=== PATIENT | male | born 1955 | race Caucasian/White ===

== ENCOUNTER 2017-08-16 18:33 | Inpatient (IN) ==
--- NOTE | 2017-08-16 18:45 | Emergency Department Note ---
Disposition Clinical Impression: Acute exacerbation of chronic obstructive airways disease Disposition: Admitted As Inpatient Condition: Good Forms: ED Satisfaction Letter Time of Disposition: 20:47 SOB HPI - General Chief Complaint: ED Shortness of Breath/Dyspnea Stated Complaint: SOB/WEAKNESS Time Seen by Provider: 08/16/17 18:37 Source: patient, EMS Mode of arrival: EMS Limitations: no limitations Nursing Notes Reviewed: Yes Vital Signs Reviewed: Yes - History of Present Illness 62-year-old male comes here from the [place] who states that he has had increasing shortness of breath and felt like is going pass out earlier. Workup was done at the [place] which shows a white count of 8.8, hemoglobin 12.6, hematocrit 39.9, platelets of 206,000, UA is negative, sodium 139, potassium 4.7, chloride of 97 , CO2 of 38, glucose 124, BUS 16, creatinine 1.02, GFR greater than 60, ABG shows a pH of 7.42 PCO2 of 63.8, PaO2 of 68. C-reactive protein 0.4, calcium 9.3, troponin is less than 0.015. 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 Constitutional: Denies: fever, chills, weakness, weight change Eyes: Denies: eye pain, eye discharge, vision change ENT ED: Denies: ear pain, throat pain, dental pain, hearing loss, epistaxis, congestion, dysphagia Cardiovascular: Denies: chest pain, palpitations, dyspnea on exertion, edema, syncope Respiratory: Reports: dyspnea, wheezes. Denies: cough, hemoptysis, stridor Gastrointestinal: Denies: abdominal pain, nausea, vomiting, diarrhea, constipation, hematemesis, melena, hematochezia Genitourinary: Denies: urgency, dysuria, frequency, hematuria Musculoskeletal: Denies: back pain, neck pain, arthralgia, myalgia Integumentary: Denies: rash, abrasion, lesions Neurological: Denies: headache, weakness, numbness, paresthesias, confusion, abnormal gait, vertigo Psychiatric: Denies: anxiety, depression, suicidal thoughts, homicidal thoughts , auditory hallucinations, visual hallucinations Endocrine: Denies: fatigue Hematological/Lymphatic: Denies: easy bleeding, easy bruising Allergic/Immunologic: Denies: facial swelling, urticaria Physical Exam - General Limitations: no limitations General appearance: alert, in no apparent distress - Head Head exam: atraumatic, normocephalic, normal inspection - Eye Eye exam: Present: normal appearance, PERRL, EOMI - ENT ENT exam: normal exam, normal oropharynx, mucous membranes moist - Neck Neck exam: Present: normal inspection, full ROM, trachea midline - Chest Chest inspection: Present: normal inspection, symmetric chest wall rise - Respiratory Respiratory exam: Present: wheezes, accessory muscle use, prolonged expiratory phase - Cardiovascular Cardiovascular exam: Present: regular rate, normal rhythm, normal heart sounds - Abdominal Exam Abdominal exam: Present: soft, Non-Tender. Absent: tenderness, distention, guarding, rebound, rigidity - Extremities Exam Extremities exam: Present: normal inspection, full ROM. Absent: tenderness, pedal edema - Expanded Lower Extremity Exam Neurovascular/Tendon exam: Absent: motor deficit, sensory deficit, tendon deficit Gait: observed and normal - Back Exam Back exam: Present: normal inspection, full ROM. Absent: tenderness - Neurological Exam Neurological exam: Present: alert, oriented X3 - Psychiatric Psychiatric exam: Present: normal affect, normal mood - Skin Skin exam: Present: warm, dry, intact, normal color Course - Reevaluation(s) Reevaluation #1: 62-year-old COPD comes in with increasing shortness of breath from [place]. Patient also had near syncope. Time: 20:48 - Consultations Consultation #1: Discussed with , admit Time: 20:47 Vital Signs Temperature 98.1 F 08/16/17 18:35 Pulse Rate 79 08/16/17 18:35 Respiratory Rate 22 08/16/17 18:35 Blood Pressure 98/81 08/16/17 18:35 O2 Sat by Pulse Oximetry 97 08/16/17 18:35 Temperature 98.1 F 08/16/17 18:35 Pulse Rate 66 08/16/17 20:31 Respiratory Rate 18 08/16/17 20:31 Blood Pressure 114/65 08/16/17 20:31 O2 Sat by Pulse Oximetry 95 08/16/17 20:31 Oxygen Delivery Oxygen Delivery Nasal Cannula Shortness of Breath/Dyspnea - Lab Data Lab results reviewed: Yes I reviewed the patient's lab results. Lab Results 08/16/17 Range/Units 19:30 B-Natriuretic Peptide 14 (Less than 100) pg/mL - Radiology Data Radiology results reviewed: Yes I reviewed the patient's radiology results. Chest X-Ray 08/16/17 18:48 IMPRESSION: No acute process. Findings suggestive of COPD. D/ / Mansoor Marin MD / Mansoor Marin MD Interpreting Provider: Mansoor Marin MD Head CT 08/16/17 18:48 IMPRESSION: No acute intracranial abnormality. Remote fracture the right lamina papyracea. D/ / Shon Reveles MD / Shon Reveles MD Interpreting Provider: Shon Reveles MD - EKG Data EKG attestation: Yes I reviewed and interpreted this EKG. EKG shows normal: Reports: sinus rhythm Rate: Reports: normal Rhythm: Reports: NSR [place]/QRS: Reports: normal Interpretation: Reports: no acute changes
[2017-08-16] MEDS ORDERED: Ipratropium/Albuterol Neb 3 ML IH ONE (19:52)
[2017-08-16] MEDS ORDERED: methylPREDNISolone 125 MG/2 ML VIAL IVP ONE (19:53)
[2017-08-17] MEDS ORDERED: 0.9 % Sodium Chloride 500 ML IVC ONE (01:03)
[2017-08-17] MEDS ORDERED: 0.9 % Sodium Chloride 1,000 ML ONE (01:07)
[2017-08-17] MEDS ORDERED: Naloxone 0.4 MG/ML INJ IVP PRN (01:25)
[2017-08-17] MEDS ORDERED: traMADol 50 MG TABLET PO PRN (01:25)
[2017-08-17] MEDS ORDERED: Acetaminophen 325 MG TABLET PO PRN (01:25)
--- NOTE | 2017-08-17 01:42 | Internal Med History&Physical ---
Date of Encounter: 08/17/17 Time of Encounter: :38 Assessment and Plan (1) Acute exacerbation of chronic obstructive airways disease Current visit: Yes Status: Acute 62/male [place] patient. Was transferred from [place] to this hospital for COPD exacerbation with possible syncope. Patient was evaluated in the emergency department at [facility]. Patient was hypotensive in the hospital. Fluid was given and patient was sent in this direction. Patient is a polyphonic wheezes. Assessment: Acute exacerbation of COPD Possible syncopal/presyncopal episode. Plan: Admit to inpatient. We will treat as a COPD exacerbation. IV antibiotics: Intravenous ceftriaxone/intravenous azithromycin. IV steroids: Intravenous Solu-Medrol 40 mg every 8 hours. Inhaled bronchodilators: Duoneb every 4 hours. Close monitoring of the respiratory status. I examined this patient in 2A 38 Patient's RN was with me during examination. plan of care explained. (2) Syncope Current visit: Yes Status: Acute Patient had a presyncopal episode during this COPD exacerbation. Patient was lightheaded. We will get ultrasound carotid/echocardiogram. Patient is presently on telemetry. Close monitoring of the neurological status. Qualifiers: Syncope type: unspecified Qualified Code(s): R55 - Syncope and collapse (3) Hypertension Current visit: Yes Status: Acute Patient's blood pressure is within acceptable range. We will continue home medication. Qualifiers: Hypertension type: essential hypertension Qualified Code(s): I10 - Essential (primary) hypertension (4) Hyperlipidemia Current visit: Yes Status: Acute We will resume patient's home medication. We will get lipid panel tomorrow morning. Qualifiers: Hyperlipidemia type: unspecified Qualified Code(s): E78.5 - Hyperlipidemia , unspecified (5) DVT prophylaxis Current visit: Yes Status: Acute SCD Medical decision making: This patient has a moderate to severe risk of worsening in spite of being on appropriate medication to the underlying chronic comorbid conditions. Internal Medicine - H&P: HPI Chief complaint: shortness of breath and dizziness. Admitted From: Emergency Dept Plans for Post Hospital Care: at Medical Facility History of present illness: Mr. Black is a 62 year old male who was transferred here from [facility]. Patient was seen at the [facility]. Patient is known to have her COPD, hypertension, dyslipidemia, GERD. Patient was persistently short of breath for past 3-4 days. It was noted that patient has progressively worsened shortness of breath along with increase sputum production. Patient is not a noted that the color of his sputum has changed from clear to yellowish green. Patient also had an episode of dizziness and room spinning around him. This was the reason patient went to [place] [facility] for further evaluation. Noted that patient' s blood pressure was in 80s at the [place]. They gave him a bolus of normal saline and sent him to [facility] for further evaluation. In emergency room patient was evaluated. His head CT was negative for any acute changes. Patient's chest x-ray did not show any acute process. Patient was hospitalized for further management. Reason for hospitalization: COPD exacerbation with presyncopal episode Past Med Surg Social Fam HX - Past Medical History Medical history: COPD, hyperlipidemia, hypertension Psychiatric history: anxiety, depression, panic disorder, PTSD - Social History Smoking Status: Former smoker Smokeless Tobacco Status: No Alcohol use: occasionally Drug use: none Internal Medicine - H&P: Meds ALPRAZolam [Xanax 0.5 MG Tablet] 0.5 mg PO TID 08/17/17 [History] Atorvastatin Calcium [Lipitor] 20 mg PO 08/17/17 [History] Budesonide/Formoterol 160/4.5 [Symbicort 160/4.5] 2 puff BID 08/17/17 [History] Cholecalciferol (Vitamin D3) [Vitamin D] 1,000 unit PO 08/17/17 [History] Furosemide [Lasix] 40 mg PO DAILY 08/17/17 [History] Furosemide [Lasix] 60 mg PO QAM 08/17/17 [History] Guaifenesin [Mucus Relief] 400 mg PO Q6HR PRN 08/17/17 [History] Lisinopril 30 mg PO DAILY 08/17/17 [History] Loratadine [Allergy Relief] 10 mg PO DAILY 08/17/17 [History] Meloxicam 15 mg PO DAILY PRN 08/17/17 [History] Omeprazole 20 mg PO DAILY 08/17/17 [History] Potassium Chloride [Klor-Con 10] 10 meq PO DAILY 08/17/17 [History] PrednisoLONE [Millipred] 5 mg PO DAILY 08/17/17 [History] Ranitidine HCl [Heartburn Relief] 150 mg PO PRN 08/17/17 [History] Tamsulosin [Flomax] 0.4 mg PO DAILY 08/17/17 [History] Theophylline Anhydrous [Theophylline] 400 mg PO DAILY 08/17/17 [History] Zolpidem [Ambien] 10 mg PO HS 08/17/17 [History] 3 Allergy/AdvReac Type Severity Reaction Status Date / Time SEE LIST Allergy Mild See Uncoded 08/16/17 18:35 Comments All Systems PM: A 10-system review of systems was performed and is negative for pertinent findings except as documented above in the HPI. - Constitutional Constitutional: fatigue, no chills, no fever(s), no night sweats - EENT Eyes: no change in vision, no discharge, no pain, no photophobia Ears: no ear discharge, no ear pain, no tinnitus Nose, mouth and throat: no dysphagia, no nasal discharge, no neck pain, no sore throat - Cardiovascular Cardiovascular ROS IM: dyspnea, lightheadedness, no chest pain, no diaphoresis, no palpitations, no syncope - Respiratory Respiratory: cough, dyspnea, wheezing, excessive phlegm production, change in phlegm color, pain with cough - Gastrointestinal Gastrointestinal: no abdominal pain, no diarrhea, no hematemesis, no hematochezia, no melena, no nausea, no vomiting - Musculoskeletal Musculoskeletal ROS IM: no numbness, no tingling - Integumentary Integumentary IM: no rash, no unusual bruising - Neurological Neurological ROS: no confusion, no convulsions, no focal weakness, no numbness, no tingling, no tremor(s) - Hematologic/Lymphatic Hematologic/Lymphatic: no easy bruising - Constitutional Vitals: Temp Pulse Resp BP Pulse Ox 98.5 F 75 16 93/56 94 08/16/17 22:49 08/16/17 22:49 08/16/17 22:49 08/16/17 22:49 08/16/17 22:49 - Head Head exam: Present: atraumatic, normocephalic - Eye Eye exam: Present: PERRL, conjuntiva pink, sclera anicteric Pupils: Present: PERRL - Neck Neck exam general surgery: Present: supple, trachea midline. Absent: lymphadenopathy - Respiratory Respiratory exam: Present: CTAB. Absent: accessory muscle use, rales, rhonchi, wheezes - Cardiovascular Cardiovascular exam: Present: RRR, +S1, +S2. Absent: diastolic murmur, gallop, rubs, systolic murmur - GI/Abdominal GI/Abdominal exam: Present: normal bowel sounds, soft, no peritoneal signs. Absent: distended, tenderness - Extremities Exam Extremities exam: Present: warm, radial pulses palpable and symmetrical. Absent : calf tenderness, cyanotic, pedal edema - Neurological Exam Neurological exam: Present: CN II-XII intact, oriented X3, no focal deficits. Absent: pronater drift, facial droop, speech deficit - Skin Skin exam: Present: dry, intact
[2017-08-17] MEDS ORDERED: Azithromycin 500 MG in D5% in Water 250 ML IVPB SCH (02:00)
[2017-08-17 02:04] LABS: Basophils % 0.3 %; Eosinophils % 0.1 %; Hematocrit 36.3 % (37.5-50.1); Hemoglobin 11.1 g/dL (12.9-16.9); Immature Granulocytes % 0.3 % (0-4); Lymphocytes % 5.5 %; Mean Corpuscular HGB Conc 30.6 g/dL (31.6-35.5); Mean Corpuscular Hemoglobin 28.5 pg (28.0-33.3); Mean Corpuscular Volume 93.1 fL (83.0-100.0); Mean Platelet Volume 9.5 fL (9.4-12.4); Monocytes % 0.5 %; Platelet Count 157 K/mcL (140-400); Red Cell Distribution Width 12.5 % (11.5-14.5); Segmented Neutrophils % 93.3 %
[2017-08-17 02:05] LABS: Lymphocytes # 0.4 K/mcL (0.6-4.6); Neutrophils # 7.4 K/mcL (1.6-8.9)
[2017-08-17 02:10] LABS: INR 1.3; Prothrombin Time 13.8 Seconds (9.4-12.1)
[2017-08-17 02:13] LABS: Activated Partial Thrombo Time 32.7 Seconds (26.0-36.0)
[2017-08-17] MEDS: cefTRIAXone 1,000 MG in Water for inj. (sterile) 20 ML 10 ML IVPB SCH (03:08)
[2017-08-17 03:18] LABS: Alanine Aminotransferase 15 Units/L (7-52); Albumin 4.2 g/dL (3.5-5.7); Albumin/Globulin Ratio 1.7 (1.1-2.2); Alkaline Phosphatase 76 Units/L (34-104); Aspartate Amino Transferase 15 Units/L (13-39); BUN/Creatinine Ratio 17 (6-26); Bilirubin,Total 0.4 mg/dL (0.3-1.0); Blood Urea Nitrogen 19 mg/dL (8-23); Calcium 9.6 mg/dL (8.6-10.3); Carbon Dioxide 33 mEq/L (23-29); Chloride 94 mEq/L (98-107); Chol/HDL Ratio 2.4 (0-4.9); Cholesterol 137 mg/dL (< 200); Globulin 2.5 g/dL (2.4-3.5); Glucose 245 mg/dL (70-105); HDL Cholesterol 56 mg/dL (40-59); LDL Cholesterol,Calculated 69 mg/dL (0-99); Magnesium 2.1 mg/dL (1.6-2.6); Osmolality,Calculated 290 (280-300); Potassium 4.7 mEq/L (3.5-5.1); Sodium 135 mEq/L (136-145); Total Protein 6.7 g/dL (6.4-8.9); Triglycerides 60 mg/dL (< 150); eGFR For African Americans > 60 (> 60); eGFR For Non-African Americans > 60 (> 60)
[2017-08-17] MEDS: Ipratropium/Albuterol Neb 3 ML IH SCH ×6 (04:25→23:29)
[2017-08-17] MEDS ORDERED: 0.9 % Sodium Chloride 1,000 ML IVC SCH (07:15)
[2017-08-17] MEDS: MethylPREDNISolone 40 MG/ML VIAL IVP SCH ×2 (08:14→15:44)
[2017-08-17] MEDS ORDERED: ALPRAZolam 0.5 MG TABLET PO SCH (09:00)
[2017-08-17] MEDS: *HR* OxyCODONE Immed Rel 5 MG TABLET PO PRN ×2 (13:09→21:04)
[2017-08-17] MEDS: ALPRAZolam 0.5 MG TABLET PO PRN ×2 (13:09→21:04)
[2017-08-17] MEDS: Saline Nasal Spray 44 ML BOTTLE NS PRN (15:30)
[2017-08-17] MEDS: Furosemide 40 MG TABLET PO SCH (17:27)
[2017-08-17] MEDS ORDERED: Chloraseptic Spray 177 ML BOTTLE MM PRN (17:43)
--- NOTE | 2017-08-17 18:37 | Event Note ---
Date of Encounter: 08/17/17 Time of Encounter: 11:00 Patient seen by strapping machine tender earlier this morning and also by myself Continue current medical management for COPD exacerbation
[2017-08-17] MEDS: Budesonide/Formoterol 160/4.5 MDI IH SCH (19:44)
[2017-08-18] MEDS: MethylPREDNISolone 40 MG/ML VIAL IVP SCH ×3 (00:06→17:52)
[2017-08-18] MEDS: cefTRIAXone 1,000 MG in Water for inj. (sterile) 20 ML 10 ML IVPB SCH (02:30)
[2017-08-18] MEDS: Ipratropium/Albuterol Neb 3 ML IH SCH ×6 (03:33→23:39)
[2017-08-18] MEDS: Budesonide/Formoterol 160/4.5 MDI IH SCH ×2 (07:46→20:10)
[2017-08-18] MEDS: Azithromycin 250 MG TABLET PO SCH (09:35)
[2017-08-18] MEDS: ALPRAZolam 0.5 MG TABLET PO PRN ×3 (09:36→22:33)
[2017-08-18] MEDS: Saline Nasal Spray 44 ML BOTTLE NS PRN (11:54)
--- NOTE | 2017-08-18 16:59 | Internal Med Progress Note ---
Date of Encounter: 08/18/17 Time of Encounter: 11:35 - Assessment and plan (1) Near syncope Current Visit: Yes Status: Acute Assessment and plan: Likely due to hypotension, which could be due to acute bronchitis and recently increased dose of Lasix. Blood pressure currently well controlled. Follow-up carotid Doppler ultrasound and echocardiogram results. (2) Acute exacerbation of chronic obstructive airways disease Current Visit: Yes Status: Acute Assessment and plan: Improving clinically. Taper down IV steroids as tolerated and continue as needed breathing treatments, inhaled corticosteroids and supplemental oxygen, empiric IV antibiotics-Rocephin and azithromycin. Respiratory infection panel pending. 2 sets of blood cultures negative. Restart home dose of Mucinex. (3) Hyperlipidemia Current Visit: Yes Status: Chronic Qualifiers: Hyperlipidemia type: unspecified Qualified Code(s): E78.5 - Hyperlipidemia , unspecified (4) Hypertension Current Visit: Yes Status: Chronic Assessment and plan: Blood pressure currently well controlled. Continue to hold antihypertensives- lisinopril. Qualifiers: Hypertension type: essential hypertension Qualified Code(s): I10 - Essential (primary) hypertension - Subjective Interval history: Feels better; improving cough and shortness of breath. No fever, chills. - Constitutional Vitals: Temp Pulse Resp BP Pulse Ox 98.2 F 98 20 121/56 92 08/18/17 15:45 08/18/17 15:45 08/18/17 15:45 08/18/17 15:45 08/18/17 15:45 General appearance: Present: A&O X 3, answers questions appropriately - Respiratory Respiratory exam: Present: decreased breath sounds (Bilateral decreased air entry), CTAB, rhonchi (Intermittent). Absent: accessory muscle use, rales, wheezes - Cardiovascular Cardiovascular exam: Present: RRR, +S1, +S2. Absent: diastolic murmur, gallop, rubs, systolic murmur - GI/Abdominal GI/Abdominal exam: Present: normal bowel sounds, soft (Obese), no peritoneal signs. Absent: distended, tenderness - Extremities Exam Extremities exam: Present: full ROM, warm, radial pulses palpable and symmetrical. Absent: calf tenderness, cyanotic, pedal edema - Neurological Exam Neurological exam: Present: CN II-XII intact, oriented X3, no focal deficits. Absent: pronater drift, facial droop, speech deficit Internal Medicine: Result - Labs CBC & Chem 7: 08/17/17 01:47 08/17/17 01:47 - ABG Interpretation ABG results: PT/INR, D-dimer PT 13.8 Seconds (9.4-12.1) H 08/17/17 01:47 - VTE Documentation of Mechanical Device: Graduated compression elastic hosiery Consult Discharge Plan - Plan [facility]errals: [facility] [Primary Care Provider] -
[2017-08-18] MEDS: Furosemide 40 MG TABLET PO SCH (17:52)
--- NOTE | 2017-08-18 18:12 | Electrocardiograph Report ---
[place] [id number] Test Date: 2017-08-16 Pat Name: Ubaldo Black Department: 104 Room: 2A Gender: M [employer] Instructor: BRINDA : 1955 Requested By: Elie Lawson Order Number: [id number] Reading MD: Elizabeth Lozano Measurements Intervals [place] Rate: 75 P: 81 WV: 150 QRS: 65 QRSD: 96 T: 67 QT: 347 QTc: 376 Interpretive Statements SINUS RHYTHM Electronically Signed On 08-18-2017 18:10:50 EST by Elizabeth Lozano
[2017-08-19 01:16] LABS: Adenovirus Not Detected (Not Detect); Bordetella Pertussis Not Detected (Not Detect); Chlamydophila pneumoniae Not Detected (Not Detect); Coronavirus 229E Not Detected (Not Detect); Coronavirus HKU1 Not Detected (Not Detect); Coronavirus NL63 Not Detected (Not Detect); Coronavirus OC43 Not Detected (Not Detect); Human Metapneumovirus Not Detected (Not Detect); Human Rhinovirus/Enterovirus Not Detected (Not Detect); Influenza A Subtype 2009 H1 Not Detected (Not Detect); Influenza A Untypeable Not Detected (Not Detect); Influenza B Not Detected (Not Detect); Mycoplasma pneumoniae Not Detected (Not Detect); Parainfluenza Virus 1 Not Detected (Not Detect); Parainfluenza Virus 2 Not Detected (Not Detect); Parainfluenza Virus 3 Not Detected (Not Detect); Parainfluenza Virus 4 Not Detected (Not Detect); Respiratory Syncytial Virus Not Detected (Not Detect)
[2017-08-19] MEDS: cefTRIAXone 1,000 MG in Water for inj. (sterile) 20 ML 10 ML IVPB SCH (02:01)
[2017-08-19] MEDS: Ipratropium/Albuterol Neb 3 ML IH SCH ×6 (03:44→23:29)
[2017-08-19] MEDS: MethylPREDNISolone 40 MG/ML VIAL IVP SCH ×2 (05:41→18:27)
[2017-08-19] MEDS: Budesonide/Formoterol 160/4.5 MDI IH SCH ×2 (07:52→19:57)
[2017-08-19] MEDS: Azithromycin 250 MG TABLET PO SCH (08:33)
[2017-08-19] MEDS: ALPRAZolam 0.5 MG TABLET PO PRN ×3 (09:53→23:10)
[2017-08-19] MEDS: Furosemide 40 MG TABLET PO SCH (18:26)
--- NOTE | 2017-08-19 22:46 | Internal Med Progress Note ---
Date of Encounter: 08/19/17 Time of Encounter: 11:20 - Assessment and plan (1) Near syncope Status: Acute Assessment and plan: Likely due to hypotension, which could be due to acute bronchitis and recently increased dose of Lasix. Blood pressure currently well controlled. carotid Doppler ultrasound shows bilateral nonstenotic plaque. echocardiogram shows 70 % ejection fraction, mild diastolic dysfunction. (2) Acute exacerbation of chronic obstructive airways disease Status: Acute Assessment and plan: Improving clinically. Taper down IV steroids as tolerated and continue as needed breathing treatments, inhaled corticosteroids and supplemental oxygen, empiric IV antibiotics-Rocephin and azithromycin. Respiratory infection panel pending. 2 sets of blood cultures negative. continue Mucinex. Home O2 evaluation done; patient would benefit from 3.5L/min via NC continuous O2; face to face evaluation has been done; he is mobile at home, would benefit from portable O2; (3) Hyperlipidemia Status: Chronic Qualifiers: Hyperlipidemia type: unspecified Qualified Code(s): E78.5 - Hyperlipidemia , unspecified (4) Hypertension Status: Chronic Assessment and plan: Blood pressure currently well controlled. Continue to hold antihypertensives- lisinopril. Qualifiers: Hypertension type: essential hypertension Qualified Code(s): I10 - Essential (primary) hypertension - Subjective Interval history: Feels better; improving cough and shortness of breath. No fever, chills. - Constitutional Vitals: Temp Pulse Resp BP Pulse Ox 97.8 F 76 16 106/57 96 08/19/17 21:58 08/19/17 21:58 08/19/17 21:58 08/19/17 21:58 08/19/17 21:58 General appearance: Present: A&O X 3, answers questions appropriately - Respiratory Respiratory exam: Present: decreased breath sounds (improving air entry B/L), CTAB. Absent: accessory muscle use, rales, rhonchi, wheezes - Cardiovascular Cardiovascular exam: Present: RRR, +S1, +S2. Absent: diastolic murmur, gallop, rubs, systolic murmur - GI/Abdominal GI/Abdominal exam: Present: normal bowel sounds, soft, no peritoneal signs. Absent: distended, tenderness Internal Medicine: Result - Labs CBC & Chem 7: 08/17/17 01:47 08/17/17 01:47 - ABG Interpretation ABG results: PT/INR, D-dimer PT 13.8 Seconds (9.4-12.1) H 08/17/17 01:47 - VTE Documentation of Mechanical Device: Graduated compression elastic hosiery Consult Discharge Plan - Plan Instructions: Chronic Obstructive Pulmonary Disease (DC) Additional Instructions: F/up[ with PCP in 1-2 weeks [facility]errals: [facility] [Primary Care Provider] - Prescriptions: Azithromycin [Zithromax] 250 mg PO Q24H #3 tablet predniSONE [PredniSONE] 40 mg PO DAILY 12 Days tablet
[2017-08-20] MEDS: cefTRIAXone 1,000 MG in Water for inj. (sterile) 20 ML 10 ML IVPB SCH (02:30)
[2017-08-20] MEDS: Ipratropium/Albuterol Neb 3 ML IH SCH ×3 (03:48→11:30)
[2017-08-20] MEDS: MethylPREDNISolone 40 MG/ML VIAL IVP SCH (05:47)
[2017-08-20] MEDS: Budesonide/Formoterol 160/4.5 MDI IH SCH (08:24)
[2017-08-20] MEDS: Azithromycin 250 MG TABLET PO SCH (09:52)
[2017-08-20] MEDS: ALPRAZolam 0.5 MG TABLET PO PRN (09:56)
[2017-08-20 11:02] VITALS: BP 108/65
--- NOTE | 2017-08-20 13:25 | Discharge Summary ---
Date of Encounter: 08/20/17 Time of Encounter: 12:10 - Discharge Diagnosis (1) Near syncope Priority: Primary Status: Acute (2) Acute exacerbation of chronic obstructive airways disease Priority: Primary Status: Acute (3) Hyperlipidemia Priority: Secondary Status: Chronic Qualifiers: Hyperlipidemia type: unspecified Qualified Code(s): E78.5 - Hyperlipidemia , unspecified (4) Hypertension Priority: Secondary Status: Chronic Qualifiers: Hypertension type: essential hypertension Qualified Code(s): I10 - Essential (primary) hypertension Hospital course: Mr. Black is a 62 year old male with history of COPD, who was admitted with worsening shortness of breath and chest tightness. Patient also had near syncope and noted to have hypotension at the time of admission. He was started on therapy for acute exacerbation of COPD with IV steroids, scheduled breathing treatments, supplemental oxygen, empiric IV antibiotics and mucolytic's. Chest x-ray and CT chest showed no evidence of pneumonia. Patient gradually improved on the above regimen. 2 sets of blood cultures and respiratory infection panel remained negative. Bilateral carotid Doppler showed nonstenotic plaque. Echocardiogram showed 70% ejection fraction, mild left ventricular diastolic dysfunction. Patient was continued on Lasix due to peripheral edema but lisinopril was held due to hypotension. Patient tolerated this regimen well and is currently medically stable for discharge with outpatient follow-up. Discharge discussed with: patient, family - Time Spent with Patient Total time spent providing and/or coordinating discharge services: Greater than 30 minutes (45 min) - Discharge Medications Prescriptions: Azithromycin [Zithromax] 250 mg PO Q24H #3 tablet predniSONE [PredniSONE] 40 mg PO DAILY 12 Days tablet Home Medications: ALPRAZolam [Xanax 0.5 MG Tablet] 0.5 mg PO TID PRN 08/17/17 [History] Albuterol Neb [Proventil Neb] 3 ml IH Q4HR PRN 08/17/17 [History] Albuterol Sulfate [Proair Hfa] 1 puff IH TID PRN 08/17/17 [History] Atorvastatin Calcium [Lipitor] 10 mg PO DAILY 08/17/17 [History] Budesonide/Formoterol 160/4.5 [Symbicort 160/4.5] 2 puff IH BID 08/17/17 [ History] Cholecalciferol (Vitamin D3) [Vitamin D3] 2,000 unit PO DAILY 08/17/17 [History] Furosemide [Lasix] 40 mg PO QPM 08/17/17 [History] Furosemide [Lasix] 60 mg PO QAM 08/17/17 [History] Guaifenesin [Mucus Relief] 400 mg PO Q6HR PRN 08/17/17 [History] Ipratropium/Albuterol Neb [Duoneb] 3 ml IH Q4HR PRN 08/17/17 [History] Loratadine [Allergy Relief] 10 mg PO DAILY 08/17/17 [History] Meloxicam 15 mg PO DAILY PRN 08/17/17 [History] Omeprazole 20 mg PO DAILY 08/17/17 [History] Potassium Chloride [Klor-Con 10] 20 meq PO DAILY 08/17/17 [History] Ranitidine HCl [Heartburn Relief] 150 mg PO HS PRN 08/17/17 [History] Tamsulosin [Flomax] 0.8 mg PO DAILY 08/17/17 [History] Theophylline Anhydrous [Theophylline] 400 mg PO DAILY 08/17/17 [History] Tiotropium [Spiriva] 18 mcg IH DAILY 08/17/17 [History] Zolpidem [Ambien] 10 mg PO HS 08/17/17 [History] Azithromycin [Zithromax] 250 mg PO Q24H #3 tablet 08/20/17 [Rx] predniSONE [PredniSONE] 40 mg PO DAILY 12 Days tablet 08/20/17 [Rx] Allergies/Adverse Reactions: 3 Allergy/AdvReac Type Severity Reaction Status Date / Time alendronate sodium Allergy Nausea Verified 08/17/17 03:06 methocarbamol Allergy Nausea Verified 08/17/17 03:06 mometasone furoate Allergy Nausea Verified 08/17/17 03:06 roflumilast Allergy Nausea Verified 08/17/17 03:06 SEE LIST Allergy Mild See Uncoded 08/16/17 18:35 Comments Date of admission: 08/17/17 03:09 Primary care physician: PCP [facility] Discharging clinician: Christiana Freeman Anticipated date of discharge: 08/20/17 - Constitutional Vitals: Temp Pulse Resp BP Pulse Ox 99.0 F 77 16 108/65 96 08/20/17 11:01 08/20/17 11:01 08/20/17 11:30 08/20/17 11:01 08/20/17 11:30 General appearance: Present: A&O X 3, obese, answers questions appropriately - Respiratory Respiratory exam: Present: decreased breath sounds (decreased air entry B/L), CTAB. Absent: accessory muscle use, rales, rhonchi, wheezes - Patient Status Disposition: Home, Self-Care Condition: Good Functional capacity at discharge: independent ambulation Overall status at discharge: patient is progressing back to baseline - Discharge Instructions [facility] With: [facility] Care Provider[facility] - Additional Instructions: F/up[ with PCP in 1-2 weeks - Diet and Activity Activity: increase activity as tolerated, wear oxygen at all times Diet: low fat, low cholesterol, low salt diet - VTE Documentation of Mechanical Device: Graduated compression elastic hosiery
== END 2017-08-20 15:14 | disposition home or self-care (01) | DRG 192 ==
LOC: 2ANU 18:33 → EMEROO 18:33 → 2ANU 22:30 → SUATTDRO 08-17 03:09
PROVIDERS: ADMIT Internal Medicine; ATTEND Internal Medicine